=== PATIENT | male | born 1955 | race Caucasian/White ===

== ENCOUNTER 2016-07-20 07:29 | Emergency (ER) | payer MEDICAID ==
--- NOTE | 2016-07-20 07:57 | ER Document Report ---
ED GI/ - General Chief Complaint: Trouble Voiding Stated Complaint: DIFFICULTY VOIDING Time Seen by Provider: 07/20/16 07:56 Mode of Arrival: Ambulatory Information source: Patient Notes: Is a 61-year-old male who presents to the ER today for trouble voiding since this morning at 5 AM. Patient has enlarged prostate and is on Flomax from his urologist who follows him for this. Patient states that he has been trying to urinate since 5 AM with very little luck. He states he had a very small amount of urination at home and then once here at the emergency department he had a very large urination. He now feels better. He denies any fever, chills, abdominal pain or low back pain, hematuria, dysuria. TRAVEL OUTSIDE OF THE [place] IN LAST 30 DAYS: No - Related Data Allergies/Adverse Reactions: thiothixene [From Navane] Allergy (Verified 07/20/16 07:43) thiothixene HCl [From Navane] Allergy (Verified 07/20/16 07:43) Past Medical History - General Information source: Patient - Social History Smoking Status: Former Smoker Family History: None Patient has suicidal ideation: No Patient has homicidal ideation: No - Past Medical History Cardiac Medical History: Reports: Hx Hypertension - lisinopril Pulmonary Medical History: Reports: Hx Bronchitis Renal/ Medical History: Reports: Hx Benign Prostatic Hyperplasia. Denies: Hx Peritoneal Dialysis Musculoskeltal Medical History: Reports Hx Arthritis Past Surgical History: Reports: Hx Appendectomy - Immunizations Hx Diphtheria, Pertussis, Tetanus Vaccination: No Review of Systems - Review of Systems Constitutional: No symptoms reported EENT: No symptoms reported Cardiovascular: No symptoms reported Respiratory: No symptoms reported Gastrointestinal: No symptoms reported Genitourinary: See HPI Male Genitourinary: No symptoms reported Musculoskeletal: No symptoms reported Skin: No symptoms reported Hematologic/Lymphatic: No symptoms reported Neurological/Psychological: No symptoms reported Physical Exam - Vital signs Vitals: Temp Pulse Resp BP Pulse Ox 97.4 F 63 20 138/85 H 99 07/20/16 07:42 07/20/16 07:42 07/20/16 07:42 07/20/16 07:42 07/20/16 07:42 - Notes Notes: PHYSICAL EXAMINATION: GENERAL: Well-appearing and in no acute distress. HEAD: Atraumatic, normocephalic. EYES: Pupils equal round and reactive to light, extraocular movements intact, sclera anicteric, conjunctiva are normal. NECK: Normal range of motion, supple without lymphadenopathy LUNGS: CTAB and equal. No wheezes rales or rhonchi. HEART: Regular rate and rhythm without murmurs ABDOMEN: Soft, Mild suprapubic tenderness. No guarding, no rebound BACK: no vertebral tenderness, normal ROM GI/: no CVA tenderness EXTREMITIES: Normal range of motion, no pitting edema. No cyanosis. NEUROLOGICAL: Cranial nerves grossly intact. Normal sensory/motor exams. PSYCH: Normal mood, normal affect. SKIN: Warm, Dry, normal turgor, no rashes or lesions noted Course - Re-evaluation Re-evalutation: 07/20/16 09:38 Patient refused straight cath. Patient has already voided a large amount here and was also able to give a very large urine sample once examined. Urinalysis negative for any infection or blood. - Vital Signs Vital signs: Temp Pulse Resp BP Pulse Ox 97.4 F 63 20 138/85 H 99 07/20/16 07:42 07/20/16 07:42 07/20/16 07:42 07/20/16 07:42 07/20/16 07:42 Discharge - Discharge Clinical Impression: Voiding difficulty Condition: Stable Disposition: HOME, SELF-CARE Additional Instructions: Return immediately for any new or worsening symptoms. Follow up with urologist, call tomorrow to make followup appointment.
[2016-07-20 09:29] LABS: APPEARANCE,URINE CLEAR; BILIRUBIN,URINE NEGATIVE (NEGATIVE); GLUCOSE, URINE NEGATIVE (NEGATIVE); KETONES,URINE NEGATIVE (NEGATIVE); LEUKOCYTE ESTERASE,URINE NEGATIVE (NEGATIVE); NITRITE,URINE NEGATIVE (NEGATIVE); PROTEIN,URINE NEGATIVE (NEGATIVE); URINE SPECIFIC GRAVITY 1.005; UROBILINOGEN,URINE NEGATIVE mg/dL (<2.0)
[2016-07-20 09:53] VITALS: BP 124/79
== END 2016-07-20 09:53 | disposition home or self-care (01) ==
LOC: ER 07:29
DX: R30.0 Dysuria (principal); I10 Essential (primary) hypertension; Z87.891 Personal history of nicotine dependence
CPT/HCPCS: 81001; 99283

== ENCOUNTER 2017-01-05 21:08 | Emergency (ER) | payer MEDICAID ==
[2017-01-05] MEDS ORDERED: ONDANSETRON 4 MG TAB.RAPDIS PO ONE (22:06)
[2017-01-05] MEDS ORDERED: HYDROCODONE/ACETAMINOPHEN 5-325 MG TABLET PO ONE (22:06)
--- NOTE | 2017-01-05 22:07 | ER Document Report ---
HPI - HPI Patient complains to provider of: Right knee pain Pain Level: 4 Context: Patient is a 61-year-old male that comes emergency department for chief complaint of right knee pain. He states the knee feels swollen, it is more difficult to walk on it, symptoms have been worsening for 1 week. He denies injury. He states he has been told that he has some arthritis in his knee, he takes Celebrex, he has been taking this, however symptoms has worsened anyway. He denies fever or chills, redness to the area, denies any other complaints. - CONSTITUTIONAL Constitutional: DENIES: Fever, Chills - MUSCULOSKELETAL Musculoskeletal: REPORTS: Extremity pain Past Medical History - General Information source: Patient - Social History Smoking Status: Never Smoker Chew tobacco use (# tins/day): No Frequency of alcohol use: Occasional Drug Abuse: None Lives with: Family Family History: None Patient has suicidal ideation: No Patient has homicidal ideation: No - Past Medical History Cardiac Medical History: Reports: Hx Hypertension - lisinopril Pulmonary Medical History: Reports: Hx Bronchitis Renal/ Medical History: Reports: Hx Benign Prostatic Hyperplasia. Denies: Hx Peritoneal Dialysis Musculoskeltal Medical History: Reports Hx Arthritis Past Surgical History: Reports: Hx Appendectomy - Immunizations Hx Diphtheria, Pertussis, Tetanus Vaccination: No Vertical Provider Document - CONSTITUTIONAL General Appearance: WD/WN, No Apparent Distress - INFECTION CONTROL TRAVEL OUTSIDE OF THE [place] IN LAST 30 DAYS: No - HEENT HEENT: Atraumatic, Normocephalic - NECK Neck: Normal Inspection - RESPIRATORY Respiratory: Breath Sounds Normal, No Respiratory Distress O2 Sat by Pulse Oximetry: 95 - CARDIOVASCULAR Cardiovascular: Regular Rate, Regular Rhythm - GI/ABDOMEN Gastrointestinal: Abdomen Soft, Abdomen Non-Tender - BACK Back: Normal Inspection - MUSCULOSKELETAL/EXTREMETIES Musculoskeletal/Extremeties: Tender - Right knee with questionable minimal swelling anteriorly, full range of motion, minimal tenderness with palpation over the knee, no erythema, abnormal heat, normal hip, ankle exam, normal distal neurovascular exam. - NEURO Level of Consciousness: Awake, Alert, Appropriate - DERM Integumentary: Warm, Dry, No Rash Course - Re-evaluation Re-evalutation: No evidence of septic joint. Small effusion on x-ray. No traumatic findings. Patient already has established orthopedics. Recommended he continue his anti- inflammatory, ice and elevate the knee for now, follow-up with orthopedics, and return for any concerning symptoms. These were discussed. Patient states satisfaction and agreement. - Vital Signs Vital signs: Temp Pulse Resp BP Pulse Ox 97.8 F 82 16 149/85 H 95 01/05/17 21:11 01/05/17 21:11 01/05/17 21:11 01/05/17 21:11 01/05/17 21:11 Discharge - Discharge Clinical Impression: Knee effusion, right Right knee pain Qualifiers: Chronicity: acute Qualified Code(s): M25.561 - Pain in right knee Condition: Stable Disposition: HOME, SELF-CARE Additional Instructions: Your knee x-ray shows a small effusion in the right knee. Elevate, apply ice to the knee for 15 minutes 3-4 times a day. Continue Celebrex. Take the provided medication if needed help you sleep at night. Follow-up closely with orthopedics for additional evaluation and management. Return to emergency department for any concerning or worsening symptoms including redness, fever, inability to bend your knee, or any other concerning symptoms. Referrals: NATHEN LUNA NP [Primary Care Provider] - Follow up as needed
--- NOTE | 2017-01-05 23:45 | RADIOLOGY REPORT (SQ) ---
EXAM DESCRIPTION: KNEE RIGHT 4 VIEWS COMPLETED DATE/TIME: 01/05/2017 10:41 pm REASON FOR STUDY: swelling, pain, hurts to walk COMPARISON: None. NUMBER OF VIEWS: Four views. TECHNIQUE: AP, lateral, and both oblique radiographic images acquired of the right knee. LIMITATIONS: None. FINDINGS: MINERALIZATION: Normal. BONES: No acute fracture or dislocation. No worrisome bone lesions. JOINT: Small effusion. SOFT TISSUES: No soft tissue swelling. No radio-opaque foreign body. OTHER: No other significant finding. IMPRESSION: Small right knee effusion. TECHNICAL DOCUMENTATION: JOB ID: [id number] [employer]- All Rights Reserved
[2017-01-06] MEDS ORDERED: HYDROCODONE/ACETAMINOPHEN 5-325 MG 6 TAB/DSPK PO PRN (00:30)
[2017-01-06 00:58] VITALS: BP 134/84
== END 2017-01-06 00:57 | disposition home or self-care (01) ==
LOC: ER 21:08
DX: M25.461 Effusion, right knee (principal); M25.561 Pain in right knee
CPT/HCPCS: 99283; 73564; S0119

== ENCOUNTER 2018-01-10 10:58 | Emergency (ER) | payer MEDICAID ==
[2018-01-10] MEDS ORDERED: NAPROXEN 250 MG TABLET PO ONE (12:04)
[2018-01-10] MEDS ORDERED: PREDNISONE 20 MG TABLET PO ONE (12:04)
--- NOTE | 2018-01-10 12:09 | ER Document Report ---
ED Extremity Problem, Lower - General Chief Complaint: Leg Pain Stated Complaint: LEFT LEG PAIN Time Seen by Provider: 01/10/18 11:34 TRAVEL OUTSIDE OF THE [place] IN LAST 30 DAYS: No - HPI Notes: Patient is a 62-year-old male that presents to the emergency department for chief complaint of left gluteal and leg pain. Patient states about a week ago he was helping a friend move furniture. He lifted a box spring and felt a pull in his back. He has had some pain in his left buttock radiating down the back of his left leg since then. He denies any lower extremity numbness or weakness. He denies saddle anesthesia, fevers, bowel or bladder incontinence. He denies history of fall or direct trauma to his back. Patient has taken Tylenol at home which gives him some relief. He has not seen any other physician for this injury. He is able to ambulate but states weightbearing increases the pain. He does get some pain relief when position changes and sitting. Past Medical History: BPH, hypertension, GERD Past Surgical History: Appendectomy Social History: Vaporized nicotine, former smoker, occasional alcohol and denies drug use Family History: Reviewed and noncontributory for presenting illness Allergies: Reviewed, see documented allergy list. REVIEW OF SYSTEMS: CONSTITUTIONAL : No fever No chills No diaphoresis No recent illness EENT: No vision changes No congestion No sore throat CARDIOVASCULAR: No chest pain No palpitations RESPIRATORY: No shortness of breath No cough No difficulty breathing GASTROINTESTINAL: No abdominal pain No nausea No vomiting No diarrhea GENITOURINARY: No dysuria No hematuria No difficulty urinating MUSCULOSKELETAL: No back pain leg pain No arm pain SKIN: No rashes No lesions LYMPHATIC: No swollen, enlarged glands. NEUROLOGICAL: No lightheadedness No headache No weakness No paresthesias PSYCHIATRIC: No anxiety No depression PHYSICAL EXAMINATION: Vital signs reviewed, nursing noted reviewed. GENERAL: Well-appearing, well-nourished and in no acute distress. HEAD: Atraumatic, normocephalic. EYES: Eyes appear normal, extraocular movements intact, sclera anicteric, conjunctiva are normal. ENT: nares patent, oropharynx clear without exudates. Moist mucous membranes. NECK: Normal range of motion, supple without lymphadenopathy LUNGS: Breath sounds clear to auscultation bilaterally and equal. No wheezes rales or rhonchi. HEART: Regular rate and rhythm without murmurs ABDOMEN: Soft, nontender, normoactive bowel sounds. No rebound, guarding, or rigidity. No masses appreciated. EXTREMITIES: Nontender, good range of motion, no pitting or edema. Left gluteal tenderness over piriformis. No left hip tenderness or femur tenderness. Normal gait. Back: No midline or paraspinal lumbar or thoracic tenderness, normal range of motion of spine NEUROLOGICAL: No focal neurological deficits. Moves all extremities spontaneously Motor and sensory grossly intact on exam. PSYCH: Normal mood, normal affect. SKIN: Warm, Dry, normal turgor, no rashes or lesions noted on exposed skin - Related Data Allergies/Adverse Reactions: thiothixene [From Navane] Allergy (Verified 01/10/18 11:11) thiothixene HCl [From Navane] Allergy (Verified 01/10/18 11:11) Past Medical History - Social History Smoking Status: Unknown if Ever Smoked Family History: None Patient has suicidal ideation: No Patient has homicidal ideation: No - Past Medical History Cardiac Medical History: Reports: Hx Hypertension Pulmonary Medical History: Reports: Hx Bronchitis Renal/ Medical History: Reports: Hx Benign Prostatic Hyperplasia. Denies: Hx Peritoneal Dialysis Musculoskeletal Medical History: Reports Hx Arthritis Past Surgical History: Reports: Hx Appendectomy - Immunizations Hx Diphtheria, Pertussis, Tetanus Vaccination: No Physical Exam - Vital signs Vitals: Temp Pulse Resp BP Pulse Ox 98.3 F 67 16 150/91 H 97 01/10/18 11:08 01/10/18 11:08 01/10/18 11:08 01/10/18 11:08 01/10/18 11:08 Course - Re-evaluation Re-evalutation: 01/10/18 12:07 Vitals reviewed. Nursing notes reviewed. Patient has pinpoint tenderness over his left piriformis suggestive of acute sciatic irritation. He will be started on anti-inflammatories and prednisone. He was given a dose of naproxen and prednisone in the emergency room. He is able to ambulate without difficulty. He has no bony injury or neurologic deficit to require further workup. Patient will follow with his primary care doctor in the next few days. We did discuss stretching techniques as well as the potential for physical therapy in the future if conservative management is not improving his symptoms. He was counseled on return precautions and verbalized understanding. Discharged home in stable condition. - Vital Signs Vital signs: Temp Pulse Resp BP Pulse Ox 98.3 F 67 16 150/91 H 97 01/10/18 11:08 01/10/18 11:08 01/10/18 11:08 01/10/18 11:08 01/10/18 11:08 Discharge - Discharge Clinical Impression: Sciatica Qualifiers: Laterality: left Qualified Code(s): M54.32 - Sciatica, left side Condition: Stable Disposition: HOME, SELF-CARE Instructions: Sciatica ([facility]) Additional Instructions: Please return to the emergency department if you have any worsening, or concern of your symptoms. Please return to the emergency department if you develop chest pain, difficulty breathing, severe abdominal pain, or ongoing vomiting. Please follow-up with your primary care physician in 2-3 days and any other recommended physicians. If prescribed, take all medications as directed. If you have any questions or concerns do not hesitate to return the emergency department for evaluation. [] Prescriptions: Naproxen 500 mg PO BID PRN #30 tablet PRN Reason: Pain Scale Of 1 Prednisone [Deltasone 20 mg Tablet] 2 tab PO DAILY 5 Days tablet Referrals: NATHEN LUNA NP [Primary Care Provider] - Follow up as needed
[2018-01-10 12:27] VITALS: BP 128/87
== END 2018-01-10 12:30 | disposition home or self-care (01) ==
LOC: ER 10:58
DX: M54.32 Sciatica, left side (principal); M79.605 Pain in left leg; M53.3 Sacrococcygeal disorders, not elsewhere classified
CPT/HCPCS: 99283; J3490; J7512

== ENCOUNTER 2018-11-12 18:28 | Emergency (ER) | payer MEDICAID ==
[2018-11-12 18:59] VITALS: BP 136/93
[2018-11-12] MEDS ORDERED: KETOROLAC TROMETHAMINE 60 MG/2 ML SDV IM ONE (19:10)
[2018-11-12] MEDS ORDERED: DEXAMETHASONE SOD PHOS INJ 10 MG/1 ML VIAL IM ONE (19:10)
[2018-11-12] MEDS ORDERED: LIDOCAINE 5% (700 MG) TRANSDERMAL ADH..PATCH TP ONE (19:10)
--- NOTE | 2018-11-12 19:15 | ER Document Report ---
HPI - HPI Time Seen by Provider: 11/12/18 19:03 Pain Level: 2 Context: Patient is a 63-year-old male presents emergency department with a chief complaint of left lower back pain. He has had history of sciatica in the past and he states that he feels like he has had a flare today. He denies any significant trauma or any other other symptoms. Denies any bladder or bowel dysfunction. Patient is able to walk, but has a limp. - ROS Systems Reviewed and Negative: Yes All other systems reviewed and negative - CONSTITUTIONAL Constitutional: DENIES: Fever, Chills - MUSCULOSKELETAL Musculoskeletal: REPORTS: Extremity pain - left leg, Back Pain - left lower back with radiation to left leg. DENIES: Neck Pain, Swelling - DERM Skin Color: Normal Skin Problems: None Past Medical History - Social History Smoking Status: Former Smoker Family History: None Patient has suicidal ideation: No Patient has homicidal ideation: No - Past Medical History Cardiac Medical History: Reports: Hx Hypertension Pulmonary Medical History: Reports: Hx Bronchitis Renal/ Medical History: Reports: Hx Benign Prostatic Hyperplasia. Denies: Hx Peritoneal Dialysis Musculoskeletal Medical History: Reports Hx Arthritis Past Surgical History: Reports: Hx Appendectomy - Immunizations Hx Diphtheria, Pertussis, Tetanus Vaccination: No Vertical Provider Document - CONSTITUTIONAL Agree With Documented VS: Yes Exam Limitations: No Limitations General Appearance: No Apparent Distress - INFECTION CONTROL TRAVEL OUTSIDE OF THE [place] IN LAST 30 DAYS: No - HEENT HEENT: Atraumatic, Normocephalic - NECK Neck: Normal Inspection - RESPIRATORY Respiratory: Breath Sounds Normal, No Respiratory Distress - CARDIOVASCULAR Cardiovascular: Regular Rate, Regular Rhythm Pulses: Normal: Radial - MUSCULOSKELETAL/EXTREMETIES Musculoskeletal/Extremeties: Tender - left Low back/buttock. negative: FROM - Decreased range of motion on left hip joint due to pain - NEURO Level of Consciousness: Awake, Alert, Appropriate Motor/Sensory: No Motor Deficit, No Sensory Deficit Deep Tendon Reflexes: 2+ - DERM Integumentary: Warm, Dry, No Rash Course - Re-evaluation Re-evalutation: 11/12/18 19:13 Differential diagnosis for back pain includes muscle spasm, muscle strain, slipped disc cauda equina syndrome, vertebral fracture, vertebral tumor, epidural abscess, pyelonephritis, or AAA. Based on history and exam, the most likely etiology of the patient's back pain is sciatic nerve pain. Emergent MRI is not indicated at this time because the patient does not have new weakness, or cauda equina syndrome. Patient does not have bladder or bowel dysfunction. Patient does not have history of IV drug use, therefore, I do not suspect an epidural abscess. Patient does not have recent weight loss or night sweats, and does not have a known history of cancer. Review of Toradol, Decadron, and lidocaine patch to help with his pain. He also send him home with lidocaine patches to go home with. I have advised him to follow-up with his primary care provider and get a referral for physical therapy. Follow-up precautions were given. Verbal discharge instructions were given to the patient. They verbalized understanding. They are stable for discharge. - Vital Signs Vital signs: Temp Pulse Resp BP Pulse Ox 98.0 F 70 136/93 H 93 11/12/18 18:58 11/12/18 18:58 11/12/18 18:58 11/12/18 18:58 Discharge - Discharge Clinical Impression: Left sided sciatica Condition: Stable Disposition: HOME, SELF-CARE Instructions: Low Back Pain ([facility]) Additional Instructions: You were seen today in the emergency department for back pain. Your back pain is most consistent with sciatic nerve pain. You may take your BC powders and acetaminophen 1000 mg for the pain. You may also buy [id number] Asp ercreme with lidocaine and apply to the area per box instructions. You are also being sent home with lidocaine patches. I have you recommend you go to physical therapy. If you develop a fever greater than 100.4 F, lose bowel or bladder function, are unable to walk, or have any symptoms that are worrisome to you, please return to the emergency department. Prescriptions: Lidocaine [Lidoderm 5% (700 mg) Transdermal Patch] 1 patch TP DAILYP PRN #10 adh..patch PRN Reason: Referrals: NATHEN LUNA NP [Primary Care Provider] - Follow up in 3-5 days
== END 2018-11-12 19:21 | disposition home or self-care (01) ==
LOC: ER 18:28
DX: M54.32 Sciatica, left side (principal); M79.605 Pain in left leg; I10 Essential (primary) hypertension
CPT/HCPCS: J1885; J3490; J1100; 96374; 96375; 99283